=== PATIENT | female | born 1995 | race Hispanic/Latino ===

== ENCOUNTER 2023-01-30 07:57 | Emergency (ER) | payer SELFPAY ==
[2023-01-30] MEDS ORDERED: Ondansetron PF 4 MG/2 ML Vial ONE (08:31)
[2023-01-30] MEDS ORDERED: Acetaminophen 500 MG TAB ONE (08:31)
[2023-01-30 08:43] LABS: #Monocytes 0.3 10x3/uL (0.0-1.1); #Neutrophils 8.6 10x3/uL (1.5-8.4); %Basophils 0.1 % (0.0-2.0); %Eosinophils 0.3 % (0.0-6.0); %Lymphocytes 9.3 % (18.0-47.0); %Monocytes 3.1 % (0.0-10.0); %Neutrophils 86.9 % (40.0-75.0); Hematocrit 40.4 % (34.9-44.5); Hemoglobin 13.9 g/dL (12.0-15.5); Mean Corpuscular HGB CONC 34.4 g/dL (32.0-36.0); Mean Corpuscular Hemoglobin 30.3 pg (27.0-33.0); Mean Platelet Volume 9.9 fl (7.4-10.4); Platelet Count 294 10x3/uL (150-450); RBC Distribution Width 13.1 % (11.5-14.5); Red Blood Cell (RBC) Count 4.59 10x6/uL (3.90-5.03); White Blood Cell (WBC) Count 9.9 10x3/uL (3.5-10.5)
[2023-01-30 09:16] LABS: ALT (SGPT) 21 U/L (8-55); AST (SGOT) 21 U/L (5-34); Albumin 3.9 g/dL (3.5-5.0); Alkaline Phosphatase 147 U/L (40-110); Anion Gap 14 mmol/L (10-20); BUN (Urea Nitrogen) 7 mg/dL (7.0-18.7); Bilirubin, Total 0.5 mg/dL (0.2-1.2); Calc. Creatinine Clearance 0 mL/min (70-130); Calcium 9.1 mg/dL (7.8-10.44); Carbon Dioxide 22 mmol/L (22-29); Chloride 103 mmol/L (98-107); Estimated GFR 126; Globulin 3.5 g/dL (2.4-3.5); Glucose 92 mg/dL (70-105); Potassium 4.4 mmol/L (3.5-5.1); Protein, Total 7.4 g/dL (6.0-8.3); Sodium 135 mmol/L (136-145)
[2023-01-30 09:56] LABS: Bilirubin Neg (Negative); Blood, Urine Negative (Negative); Clarity Clear (Clear); Glucose, Urine (Dipstick) Normal (Negative); Ketone, Urine 50 mg/dL (Negative); Leukocyte 25 (Negative); Nitrite Negative (Negative); Protein, Urine (Dipstick) Negative (Neg-Trace); Urobilinogen Normal mg/dL (Less than 2)
[2023-01-30 10:20] LABS: Bacteria/HPF 2+ HPF (None Seen); CAUTI Indications for Culture Pelvic or flank pain; RBC/HPF 0-3 HPF (0-3); Urine Culture Reflex No No
[2023-01-30] MEDS ORDERED: cefTRIAXone (ROCEPHIN) 1 GM VIAL ONE (10:36)
== END 2023-01-30 11:24 | disposition home or self-care (01) ==
LOC: CSHERS 07:57
DX: O99.891 Other specified diseases and conditions complicating pregnancy (principal); R82.71 Bacteriuria; R10.33 Periumbilical pain; O21.2 Late vomiting of pregnancy; Z3A.21 21 weeks gestation of pregnancy
CPT/HCPCS: 76815; 80053; 81001; 84702; 85025; 96361; 96365; 96375; J0696; J2405

== ENCOUNTER 2023-02-26 11:45 | Observation (INO) | payer MEDICAID ==
[2023-02-26] MEDS ORDERED: hydrALAZINE 20 MG/ML VIAL SLOW IVP PRN (12:22)
[2023-02-26 12:25] VITALS: BMI 25.0
[2023-02-26] MEDS ORDERED: Acetaminophen 500 MG TAB PO SCH (13:30)
[2023-02-26] MEDS ORDERED: Lactated Ringer's 1,000 ML IV SCH ×2 (13:45→15:45)
[2023-02-26 14:11] LABS: Bilirubin 1+ (Negative); Blood, Urine Negative (Negative); Clarity Clear (Clear); Glucose, Urine (Dipstick) Normal (Negative); Ketone, Urine 150 mg/dL (Negative); Leukocyte 25 (Negative); Nitrite Negative (Negative); Protein, Urine (Dipstick) 30 mg/dl (Neg-Trace); Specific Gravity, Urine 1.015 (1.005-1.030); pH, Urine 6.5 (5.0-9.0)
[2023-02-26 14:23] LABS: Bacteria/HPF None Seen HPF (None Seen); CAUTI Indications for Culture Pregnancy; RBC/HPF 0-3 HPF (0-3); Squamous Epithelial None Seen HPF (0-3); WBC/HPF 0-3 HPF (0-3)
[2023-02-26 14:24] LABS: Urine Culture Reflex Yes Yes
[2023-02-26 14:26] LABS: SARS-CoV-2 NAA Rapid Test Not Detected (NotDetected)
[2023-02-26 14:39] LABS: #Eosinphils 0.1 10x3/uL (0.0-0.5); #Monocytes 0.5 10x3/uL (0.0-1.1); #Neutrophils 12.4 10x3/uL (1.5-8.4); %Basophils 0.2 % (0.0-2.0); %Lymphocytes 4.4 % (18.0-47.0); %Monocytes 3.9 % (0.0-10.0); %Neutrophils 89.9 % (40.0-75.0); Hematocrit 40.6 % (34.9-44.5); Hemoglobin 13.7 g/dL (12.0-15.5); Mean Corpuscular HGB CONC 33.7 g/dL (32.0-36.0); Mean Corpuscular Hemoglobin 30.6 pg (27.0-33.0); Mean Corpuscular Volume 90.6 fl (81.6-98.3); Mean Platelet Volume 10.2 fl (7.4-10.4); Platelet Count 363 10x3/uL (150-450); RBC Distribution Width 13.1 % (11.5-14.5); Red Blood Cell (RBC) Count 4.48 10x6/uL (3.90-5.03); White Blood Cell (WBC) Count 13.8 10x3/uL (3.5-10.5)
[2023-02-26 15:06] LABS: ALT (SGPT) 191 U/L (8-55); AST (SGOT) 116 U/L (5-34); Albumin 3.4 g/dL (3.5-5.0); Alkaline Phosphatase 638 U/L (40-110); Anion Gap 12 mmol/L (10-20); BUN (Urea Nitrogen) 7 mg/dL (7.0-18.7); Calc. Creatinine Clearance 116 mL/min (70-130); Calcium 8.6 mg/dL (7.8-10.44); Carbon Dioxide 22 mmol/L (22-29); Chloride 104 mmol/L (98-107); Estimated GFR 125; Globulin 3.5 g/dL (2.4-3.5); Glucose 107 mg/dL (70-105); Protein, Total 6.9 g/dL (6.0-8.3); Sodium 134 mmol/L (136-145)
[2023-02-26] MEDS ORDERED: Morphine 4 MG/ML VIAL SLOW IVP SCH (15:15)
[2023-02-26 15:34] LABS: Lipase 7992 U/L (8-78)
[2023-02-26] MEDS ORDERED: Ondansetron PF 4 MG/2 ML Vial IVP PRN (15:52)
[2023-02-26 15:58] LABS: HIV (1/2) Antibody/Antigen Non-Reactive (NonReactive); HIV 1/2 INDEX 0.06 S/CO (<1.00)
[2023-02-26] MEDS ORDERED: Oxytocin 30 units/NS 500 ML 500 ML IV SCH (16:00)
[2023-02-26] MEDS ORDERED: Piperacillin/Tazobactam 3.375 GM in Sodium Chloride 0.9% 100 ML IVPB SCH ×2 (16:30→21:00)
[2023-02-26] MEDS ORDERED: fentaNYL 50 mcg/mL 1 mL Vial SLOW IVP PRN (16:52)
[2023-02-26 16:57] LABS: Cardiac Risk 4.1 (Less than 4.5)
[2023-02-26 20:43] LABS: HBCM Index 0.07 S/CO (0-0.79); Hep A IgM AB Non-Reactive S/CO (NonReactive); Hep A IgM S/CO 0.23 S/CO (0-0.79); Hep C IgG Ab Non-Reactive S/CO (NonReactive); Hep C Index 0.05 S/CO (0-0.79); Hepatitis B Core IgM Abs Non-Reactive S/CO (NonReactive)
[2023-02-26 23:53] LABS: HBSAg Index 0.23 S/CO (0-0.99); Hep B Surf Ag Non-Reactive S/CO (NonReactive)
[2023-02-27 22:34] LABS: Chlamydia by PCR, Vaginal Swab Not Detected (NotDetected); GC by PCR, Vaginal Swab Not Detected (NotDetected); Tric.vaginalis PCR,Vaginal Sw Not Detected (NotDetected)
== END 2023-02-26 18:47 | disposition short-term general hospital (02) ==
LOC: CSHLD/OP 11:45 → CSHLD 15:15
PROVIDERS: ADMIT Obstetrics & Gynecology; ATTEND Obstetrics & Gynecology
DX: O26.612 Liver and biliary tract disorders in pregnancy, second trimester (principal); K85.10 Biliary acute pancreatitis without necrosis or infection; O99.891 Other specified diseases and conditions complicating pregnancy; R10.9 Unspecified abdominal pain; R00.2 Palpitations; M54.9 Dorsalgia, unspecified; R74.01 Elevation of levels of liver transaminase levels; D72.829 Elevated white blood cell count, unspecified; R07.89 Other chest pain; O23.42 Unspecified infection of urinary tract in pregnancy, second trimester; N39.0 Urinary tract infection, site not specified; O99.282 Endocrine, nutritional and metabolic diseases complicating pregnancy, second trimester; E86.0 Dehydration; O23.592 Infection of other part of genital tract in pregnancy, second trimester; N89.8 Other specified noninflammatory disorders of vagina; Z3A.25 25 weeks gestation of pregnancy
CPT/HCPCS: 36415; 51701; 76705; 80053; 80061; 80074; 81001; 83690; 84443; 85025; 87040; 87086; 87389; 87480; 87491; 87510; 87591; 87660; 87661; 93005; 93010; 96374; 96375; 99285; G0378; J2270; J2543; J3010; J3490; J7120

== ENCOUNTER 2023-05-27 07:58 | Inpatient (IN) | payer MEDICAID ==
[2023-05-27 08:42] VITALS: BMI 26.4
[2023-05-27] MEDS ORDERED: hydrALAZINE 20 MG/ML VIAL SLOW IVP PRN ×2 (09:27)
[2023-05-27] MEDS ORDERED: Promethazine HCl 25 MG/ML VIAL IM PRN (09:27)
[2023-05-27] MEDS ORDERED: Calcium Gluc 4.6 MEQ/10 ML (100 MG/ML) SLOW IVP PRN (09:27)
[2023-05-27] MEDS ORDERED: Lorazepam 2 MG/ML VIAL SLOW IVP PRN (09:27)
[2023-05-27] MEDS ORDERED: Misoprostol 200 MCG TAB PR PRN (09:27)
[2023-05-27] MEDS ORDERED: Lidocaine 1% (PF) 30 ML VIAL SC PRN (09:27)
[2023-05-27] MEDS ORDERED: Ondansetron PF 4 MG/2 ML Vial IVP PRN (09:27)
[2023-05-27] MEDS ORDERED: Methylergonovine 0.2 MG/ML VIAL IM PRN (09:27)
[2023-05-27] MEDS ORDERED: Ibuprofen 800 MG TAB PO PRN (09:27)
[2023-05-27] MEDS ORDERED: Tranexamic Acid 1,000 MG/10 ML VIAL IVP PRN (09:27)
[2023-05-27] MEDS ORDERED: Oxytocin 30 units/NS 500 ML 500 ML ONE (09:29)
[2023-05-27] MEDS ORDERED: Penicillin G Potassium 5 MILL.UNITS VIAL ONE (09:29)
[2023-05-27] MEDS ORDERED: Lidocaine 1% (PF) 30 ML VIAL ONE (09:29)
[2023-05-27] MEDS ORDERED: Oxytocin 30 units/NS 500 ML 500 ML IV SCH (09:30)
[2023-05-27] MEDS ORDERED: Lactated Ringer's 1,000 ML IV SCH (09:30)
[2023-05-27] MEDS ORDERED: Penicillin G Potassium 5 MILL.UNITS in Sodium Chloride 0.9% 100 ML IVPB SCH (09:30)
[2023-05-27 09:51] LABS: Hematocrit 43.8 % (34.9-44.5); Hemoglobin 15.2 g/dL (12.0-15.5); Mean Corpuscular HGB CONC 34.7 g/dL (32.0-36.0); Mean Corpuscular Hemoglobin 29.7 pg (27.0-33.0); Mean Corpuscular Volume 85.5 fl (81.6-98.3); Mean Platelet Volume 12.2 fl (7.4-10.4); Platelet Count 381 10x3/uL (150-450); RBC Distribution Width 12.9 % (11.5-14.5); Red Blood Cell (RBC) Count 5.12 10x6/uL (3.90-5.03); White Blood Cell (WBC) Count 12.1 10x3/uL (3.5-10.5)
[2023-05-27 10:29] LABS: ALT (SGPT) 483 U/L (8-55); AST (SGOT) 267 U/L (5-34); Albumin 3.7 g/dL (3.5-5.0); Alkaline Phosphatase 409 U/L (40-110); Anion Gap 18 mmol/L (10-20); BUN (Urea Nitrogen) 11 mg/dL (7.0-18.7); Calc. Creatinine Clearance 138 mL/min (70-130); Calcium 9.1 mg/dL (7.8-10.44); Carbon Dioxide 18 mmol/L (22-29); Chloride 103 mmol/L (98-107); Estimated GFR 126; Globulin 3.8 g/dL (2.4-3.5); Glucose 78 mg/dL (70-105); Potassium 4.4 mmol/L (3.5-5.1); Protein, Total 7.5 g/dL (6.0-8.3); Sodium 135 mmol/L (136-145)
[2023-05-27 10:42] LABS: HBSAg Index 0.16 S/CO (0-0.99); Hep B Surf Ag - L&D Non-Reactive S/CO (NonReactive)
[2023-05-27 10:44] LABS: Syphilis Antibody Nonreactive (Nonreactive); Syphilis Antibody Index 0.04 S/CO (<1.00 Non-Reactive)
[2023-05-27 11:03] LABS: Analyzer IN Cardio CS NICU; pH (Cord, venous) 7.369 (7.250-7.350)
[2023-05-27] MEDS ORDERED: Magnesium Sulfate 20 gm/500 ml 20 GM/500 ML BAG IVPB SCH (11:30)
[2023-05-27] MEDS: Magnesium Sulfate 20 gm/500 ml 20 GM/500 ML BAG IVPB SCH (11:39)
[2023-05-27 11:41] LABS: Amphetamine Not Detected (NotDetected); Barbiturates Screen Detected (NotDetected); Benzodiazepine Screen Not Detected (NotDetected); Cocaine Metabolite Screen Not Detected (NotDetected); Methadone Not Detected (NotDetected); Methamphetamine Not Detected (NotDetected); Opiate Screen Not Detected (NotDetected); Oxycodone Screen Not Detected (NotDetected); Phencyclidine (PCP) Not Detected (NotDetected); THC/Cannabinoid Screen Not Detected (NotDetected); Tricyclic Screen Not Detected (NotDetected)
[2023-05-27] MEDS ORDERED: Labetalol HCl 200 MG TAB PO SCH ×2 (11:45→21:00)
[2023-05-27] MEDS ORDERED: Penicillin G 2.5 MILL.units 2.5 MILL.UNITS in Premix 1 BAG IVPB SCH (13:30)
[2023-05-27 17:03] LABS: Acetaminophen Less than 10 mcg/mL (10.0-30.0); Alcohol Less than 10.0 mg/dL (Less than 10); Salicylate Less than 8.0 mg/dL (15.0-30.0)
[2023-05-27] MEDS ORDERED: Labetalol HCl 100 MG TAB PO SCH (21:00)
[2023-05-28 00:35] LABS: HBCM Index 0.08 S/CO (0-0.79); HBSAg Index 0.16 S/CO (0-0.99); Hep A IgM AB Non-Reactive S/CO (NonReactive); Hep B Surf Ag Non-Reactive S/CO (NonReactive); Hep C IgG Ab Non-Reactive S/CO (NonReactive); Hep C Index 0.07 S/CO (0-0.79); Hepatitis B Core IgM Abs Non-Reactive S/CO (NonReactive)
[2023-05-28 03:58] LABS: #Monocytes 0.5 10x3/uL (0.0-1.1); #Neutrophils 5.2 10x3/uL (1.5-8.4); %Basophils 0.4 % (0.0-2.0); %Eosinophils 0.5 % (0.0-6.0); %Lymphocytes 29.9 % (18.0-47.0); %Monocytes 6.2 % (0.0-10.0); %Neutrophils 62.9 % (40.0-75.0); Hematocrit 34.7 % (34.9-44.5); Hemoglobin 11.6 g/dL (12.0-15.5); Mean Corpuscular HGB CONC 33.4 g/dL (32.0-36.0); Mean Corpuscular Hemoglobin 28.7 pg (27.0-33.0); Mean Corpuscular Volume 85.9 fl (81.6-98.3); Mean Platelet Volume 11.6 fl (7.4-10.4); Platelet Count 345 10x3/uL (150-450); Red Blood Cell (RBC) Count 4.04 10x6/uL (3.90-5.03); White Blood Cell (WBC) Count 8.2 10x3/uL (3.5-10.5)
[2023-05-28] MEDS: Magnesium Sulfate 20 gm/500 ml 20 GM/500 ML BAG IVPB SCH (04:16)
[2023-05-28 04:20] LABS: ALT (SGPT) 613 U/L (8-55); AST (SGOT) 339 U/L (5-34); Albumin 2.9 g/dL (3.5-5.0); Alkaline Phosphatase 294 U/L (40-110); Anion Gap 14 mmol/L (10-20); BUN (Urea Nitrogen) 8 mg/dL (7.0-18.7); Bilirubin, Total 0.5 mg/dL (0.2-1.2); Calc. Creatinine Clearance 122 mL/min (70-130); Calcium 7.7 mg/dL (7.8-10.44); Carbon Dioxide 19 mmol/L (22-29); Chloride 103 mmol/L (98-107); Estimated GFR 122; Globulin 3.5 g/dL (2.4-3.5); Glucose 141 mg/dL (70-105); Potassium 4.1 mmol/L (3.5-5.1); Protein, Total 6.4 g/dL (6.0-8.3); Sodium 132 mmol/L (136-145)
[2023-05-28] MEDS ORDERED: Ibuprofen 800 MG TAB PO SCH (05:45)
[2023-05-28 08:39] LABS: Magnesium 4.6 mg/dL (1.6-2.6)
[2023-05-28] MEDS ORDERED: Boostrix 0.5 ML (Tdap) VIAL (>/=7 yrs of age) IM ONE (11:14)
[2023-05-28] MEDS ORDERED: Milk Of Magnesia 30 ML UDCUP PO PRN (11:14)
[2023-05-28] MEDS ORDERED: Preparation H Ointment 28 GM TUBE PR PRN (11:14)
[2023-05-28] MEDS ORDERED: Bisacodyl 10 MG SUPP PR PRN (11:14)
[2023-05-28] MEDS ORDERED: Lanolin Ointment 7 GM TUBE TOP PRN (11:14)
[2023-05-28] MEDS ORDERED: Iopamidol 300 61% 100 ML VIAL FS ONE (12:45)
[2023-05-28] MEDS: Ibuprofen 800 MG TAB PO SCH ×2 (14:36→20:30)
[2023-05-28] MEDS: Ferrous Sulfate 325 MG TAB PO SCH (19:41)
[2023-05-28] MEDS: Docusate 100 MG CAP PO SCH (20:30)
[2023-05-29 04:25] LABS: #Basophils 0.1 10x3/uL (0.0-0.2); #Eosinphils 0.1 10x3/uL (0.0-0.5); #Monocytes 0.5 10x3/uL (0.0-1.1); #Neutrophils 4.7 10x3/uL (1.5-8.4); %Basophils 0.6 % (0.0-2.0); %Eosinophils 1.7 % (0.0-6.0); %Lymphocytes 35.1 % (18.0-47.0); %Monocytes 6.3 % (0.0-10.0); %Neutrophils 55.7 % (40.0-75.0); Hematocrit 39.5 % (34.9-44.5); Hemoglobin 12.9 g/dL (12.0-15.5); Mean Corpuscular HGB CONC 32.7 g/dL (32.0-36.0); Mean Corpuscular Hemoglobin 28.9 pg (27.0-33.0); Mean Corpuscular Volume 88.4 fl (81.6-98.3); Platelet Count 354 10x3/uL (150-450); RBC Distribution Width 13.5 % (11.5-14.5); Red Blood Cell (RBC) Count 4.47 10x6/uL (3.90-5.03); White Blood Cell (WBC) Count 8.5 10x3/uL (3.5-10.5)
[2023-05-29] MEDS: Ibuprofen 800 MG TAB PO SCH ×2 (05:36→13:49)
[2023-05-29] MEDS ORDERED: Measles/Mumps/Rubella 10 MCG/0.5 ML VIAL SC ONE (06:31)
[2023-05-29 06:58] LABS: ALT (SGPT) 531 U/L (8-55); AST (SGOT) 205 U/L (5-34); Albumin 3.1 g/dL (3.5-5.0); Alkaline Phosphatase 269 U/L (40-110); Anion Gap 17 mmol/L (10-20); BUN (Urea Nitrogen) 10 mg/dL (7.0-18.7); Bilirubin, Total 0.6 mg/dL (0.2-1.2); Calc. Creatinine Clearance 129 mL/min (70-130); Calcium 8.8 mg/dL (7.8-10.44); Carbon Dioxide 21 mmol/L (22-29); Chloride 105 mmol/L (98-107); Estimated GFR 124; Globulin 3.6 g/dL (2.4-3.5); Glucose 79 mg/dL (70-105); Potassium 4.9 mmol/L (3.5-5.1); Protein, Total 6.7 g/dL (6.0-8.3); Sodium 138 mmol/L (136-145)
[2023-05-29 07:54] VITALS: BP 126/84; TEMP 98.2
[2023-05-29] MEDS: Ferrous Sulfate 325 MG TAB PO SCH ×2 (09:41→16:31)
[2023-05-29] MEDS: Docusate 100 MG CAP PO SCH (10:11)
== END 2023-05-29 16:40 | disposition home or self-care (01) | DRG 806 ==
LOC: CSHLD/OP 07:58 → CSHLD 09:40 → CSHPP 05-28 13:00
PROVIDERS: ADMIT Obstetrics & Gynecology; ATTEND Obstetrics & Gynecology
PROC: 10E0XZZ Delivery of Products of Conception, External Approach (ICD-10-PCS; principal; 2023-05-27)
DX: O13.4 Gestational [pregnancy-induced] hypertension without significant proteinuria, complicating childbirth (principal); E87.1 Hypo-osmolality and hyponatremia; Z37.0 Single live birth; O69.81X0 Labor and delivery complicated by cord around neck, without compression, not applicable or unspecified; Z3A.38 38 weeks gestation of pregnancy; O77.0 Labor and delivery complicated by meconium in amniotic fluid; O14.15 Severe pre-eclampsia, complicating the puerperium; O99.285 Endocrine, nutritional and metabolic diseases complicating the puerperium; Z90.49 Acquired absence of other specified parts of digestive tract; R74.01 Elevation of levels of liver transaminase levels; O99.893 Other specified diseases and conditions complicating puerperium
CPT/HCPCS: 36415; 74178; 76705; 80053; 80074; 80143; 80179; 80306; 80307; 82140; 82570; 82805; 83615; 83735; 84156; 85025; 85027; 86780; 86850; 86900; 86901; 87340; 99285; J2001; J2540; J2590; J3475; Q9967